=== PATIENT | female | born 1960 | race Caucasian/White ===

== ENCOUNTER 2018-02-15 21:27 | Emergency (ER) | payer OTHER ==
[~2018-02-15] VITALS: Ht 165.1 cm; Wt 96.2 kg
[~2018-02-15 21:27] MED LIST: AMBIEN10 MG PO; ANTIVERT25 M1 PO; ARMOUR THYROID120 M1 PO; DICLOFENAC SODI50 MG PO; INVOKAMET 150-1 EAC1 PO; LIPOFLAVOVIT CA1 TAB PO; SYNTHROID75 MCG; ZANTAC300 MG; ZOLOFT100 MG
[2018-02-16] MEDS ORDERED: BACTRIM DS TAB1 EACH PO (01:35)
== END 2018-02-16 01:41 ==
LOC: ER 21:27
DX: N39.0 Urinary tract infection, site not specified (principal); M54.5 Low back pain; R10.2 Pelvic and perineal pain

== ENCOUNTER 2019-01-13 20:45 | Emergency (ER) | payer OTHER ==
[~2019-01-13] VITALS: Ht 167.6 cm; Wt 102.1 kg
[~2019-01-13 20:45] MED LIST changes: +BACTRIM DS TAB1 EACH PO
== END 2019-01-14 02:08 | disposition home or self-care (01) ==
LOC: ER 20:45
DX: G44.40 Drug-induced headache, not elsewhere classified, not intractable (principal); R07.89 Other chest pain; T50.995A Adverse effect of other drugs, medicaments and biological substances, initial encounter